=== PATIENT | male | born 1970 | race Two or more races ===

== ENCOUNTER 2024-07-12 09:00 | Emergency (ER) | payer MEDICAID, SELFPAY ==
[2024-07-12 09:07] VITALS: BP 118/80; PULSE 60; RESP 18; TEMP 36.9; O2SAT 96; BMI 39.5
[2024-07-12] MEDS: CLINDAMYCIN 150 MG CAPSULE 300 MG PO (09:16)
--- NOTE | 2024-07-12 09:16 | PD.EDSKIN ---
ED Skin Abcess FB-RME/HPI General Chief complaint: Skin/Abscess/Foreign Body Stated complaint: PIMPLE ON LEG Time Seen by Provider: 07/12/24 09:12 Arrival date/time: 07/12/24 09:00 53 year old male present to emergency room with c/o of upper left leg abscess for 8 days. pt report history of similar sx and normally goes away but report this one has worsen. pt is not on antibiotics. LOCATION: leg SEVERITY: Symptoms are described as being severe with limitations on activities of daily living QUALITY: Symptoms are described as being dull or achy CONTEXT: The patient is unable to identify any inciting events. DURATION/TIMING: The symptoms started approximately 8 day ago and have been constant this then, and have been progressive getting worse. ASSOCIATED SYMPTOMS: The patient is unable to identify any other associated symptoms. MODIFYING FACTORS: The patient is unable to identify any alleviating or aggravating symptoms. PERTINENT ROS: denies IVDU, states no immunocompromising condition, denies any penetrating trauma, no fever, no unexplained nausea or vomiting, no headache, no chest pain REVIEW OF SYSTEMS: See History of Present Illness - with the exception of those mentioned in the history of present illness, all other systems reviewed and reported as negative GENERAL: In general the patient is awake, interactive, in an emergency department gurney. HEAD/EYES/EARS/NOSE/THROAT: normo-cephalic, atraumatic, mucus membranes are moist, anicteric, palpebral conjunctiva is pink, trachea is midline. CARDIOVASCULAR: regular rate and regular rhythm, no murmurs, heart sounds are not distant, strong pulses in all four extremities that are equal and symmetric bilateral upper and lower extremities, normal capillary refill. EXTREMITY: no tenderness to palpation over the long bones or large joints of the bilateral upper extremities, no joint swelling, no joint erythema, no signs of trauma, no unilateral leg swelling and no peripheral edema. SKIN: Left upper thigh 2x2 erythema warm and mild induration nonfluculated mass consisted with abscess. no red streaking or discharge. warm, dry, well-perfused, no jaundice, no rash, no telangiectasias or petechia. PSYCH: calm, cooperative, no evidence of psychosis or agitation Related Data Previous Rx's ?Medication ?Instructions ?Recorded clindamycin HCl 300 mg capsule 300 mg PO QID 10 days #40 caps 07/12/24 Allergies Allergy/AdvReac Type Severity Reaction Status Date / Time NKA Allergy Unknown Uncoded 07/12/24 09:02 Course Course Course Narrative: Patient is admitted to the Emergency Department and evaluated. Patient appears well, is non-toxic and well hydrated.No signs of cellulitis, lymphangitis, or systemic infection. Pt appears to have an early abscess that is indurated and I&D not indicated Pt is given instructions to use warm compresses. Will initiate outpatient abx. Instructed to return in 2 days for recheck. Quality Measures none Orders Category Date Time Status Clindamycin [Cleocin] Med 07/12/24 09:12 Discontinued 300 mg PO X1 ONE Vital Signs Vital signs: Vital Signs Temperature 98.5 F 07/12/24 09:07 Pulse Rate 60 07/12/24 09:07 Respiratory Rate 18 07/12/24 09:07 Blood Pressure 118/80 07/12/24 09:07 Pulse Oximetry (%) 96 07/12/24 09:07 Oxygen Delivery Method Room Air 07/12/24 09:07 Skin / Abscess / Foreign Body Patient data External records reviewed:: None Clinical information provided by:: patient Social determinants that could affect healthcare access:: none Patient has the following chronic illnesses:: HTN, HDL How is presenting disease/condition affected by chronic disease/condition?: uneffected by Evaluation data The following diagnostics were reviewed and interpreted by me:: other (specify) (na) Lab and/or radiology exams considered but not ordered:: n/a Interpretation Summary: n/a Medications / Prescriptions Medications or Prescriptions considered but not ordered:: n/a Medication administrations:: Medication Administration History Discontinued Medications Clindamycin HCl (Clindamycin 150 Mg Capsule) 300 mg PO X1 ONE Stop: 07/12/24 09:13 Last Admin: 07/12/24 09:16 Dose: 300 mg Documented By: DO as stated above Consultations Consultation(s) initiated? (list below): No Diagnosis Skin/Abscess Differential Diagnosis: abscess of skin or subcutaneous tissue, cellulitis and insect bites Most likely diagnosis given after review of the tests above:: abscess Admission Indicated Admission indicated?: not indicated Admission Request Was there a request for admission?: No Disposition Plan Disposition Plan: Discharge Discharge Attestation Discharge Attestation: The patient and all family members were given an opportunity to ask questions and understood the discharge instructions. Discharge instructions specifically effects, indications for sooner follow up or return to the emergency department, and the expected course of current diagnosis. Patient condition: Stable Discharge Plan Plan Patient Disposition: HOME (Self Care) Health Concerns: Follow with PMD as directed Take tylenol or motrin as need Return to ED if sx worsen Prescriptions/Referrals Prescriptions/Med Rec: New clindamycin HCl 300 mg capsule 300 mg PO QID 10 Days Qty: 40 0RF Problem List Clinical Impression: Abscess Patient/Caregiver Discharge Instructions Education Materials: ED Abscess Antibiotic ... Print Language: Barbadian Stand Alone Forms: [employer] Award Info., Patient Portal Info Letter
== END 2024-07-12 09:48 | disposition home or self-care (01) ==
LOC: SERX 09:43
PROVIDERS: Emergency Provider Emergency Medicine; PCP Family Medicine
DX: L02.416 Cutaneous abscess of left lower limb (principal)
CPT/HCPCS: 99282; A9270